=== PATIENT | male | born 2000 | race African-American/Black ===

== ENCOUNTER 2023-05-21 14:00 | Emergency (ER) | payer SELFPAY ==
[~2023-05-21] VITALS: Ht 170.2 cm; Wt 61.0 kg
[2023-05-21 14:04] VITALS: TEMP 98.1; O2SAT 100
[2023-05-21 18:30] VITALS: BP 110/75; PULSE 83; RESP 20
[2023-05-21] MEDS ORDERED: BACITRACIN ZINC OINT UDPKT TOP ONE (18:30)
[2023-05-21] MEDS ORDERED: IBUPROFEN 600MG TABLET PO ONE (18:30)
[2023-05-21] MEDS ORDERED: IBUP-2029 MT (19:04)
[2023-05-21] MEDS ORDERED: BO1 TP (19:04)
== END 2023-05-21 19:23 | disposition home or self-care (01) ==
LOC: ER 14:00
DX: S50.311A Abrasion of right elbow, initial encounter (principal); Z98.890 Other specified postprocedural states; W18.39XA Other fall on same level, initial encounter; Y93.89 Activity, other specified; Y92.89 Other specified places as the place of occurrence of the external cause; Y99.8 Other external cause status
CPT/HCPCS: 71046; 73080; 99284